=== PATIENT | female | born 1975 | race Caucasian/White ===

== ENCOUNTER → 2021-02-24 | Outpatient (CLI) | payer OTHER | LOC: COL.VAS 02-04 14:00 | DX: R06.02 Shortness of breath (principal); R06.00 Dyspnea, unspecified ==

== ENCOUNTER 2023-08-30 12:48 | Day surgery (SDC) | payer OTHER ==
[~2023-08-30] VITALS: Ht 165.1 cm; Wt 128.7 kg
[2023-08-30 13:35] VITALS: BP 132/79; PULSE 76; TEMP 97.4
[2023-08-30] MEDS ORDERED: TOPAMAX50 MG PO (13:41)
[2023-08-30] MEDS ORDERED: PRILOSEC 20MG20 MG PO (13:42)
[2023-08-30] MEDS ORDERED: IMITREX50 MG PO (13:42)
[2023-08-30] MEDS ORDERED: CYMBALTA 30MG30 MG PO (13:42)
[2023-08-30] MEDS ORDERED: ZYRTEC 10MG10 MG PO (13:43)
[2023-08-30 13:50] VITALS: BP 141/84; PULSE 75
[2023-08-30 13:58] VITALS: BP 150/91; PULSE 77; TEMP 97.3
[2023-08-30 14:05] VITALS: BP 150/91; PULSE 76
--- NOTE | 2023-08-30 15:05 | NUR ---
1335-PATIENT ARRIVED TO [facility] VIA CART, AMBULATED WITH ASSISTANCE TO RECLINER. WARM BLANKET PROVIDED AND VITAL SIGNS TAKEN, VSS. REPORT OBTAINED FROM GLORIA AVALOS. UPDATE GIVEN TO PATIENT AND SPOUSE AT BEDSIDE. PT DENIES PAIN OR NAUSEA AT THIS TIME. 1350-PT TOLERATING PO INTAKE AT THIS TIME, DENIES COMPLAINTS. VSS. 1415-DR. DE LA ROSA AT BEDSIDE, PROCEDURE AND PLAN OF CARE REVIEWED WITH PATIENT. DISCHARGE INSTRUCTIONS REVIEWED, QUESTIONS INVITED. 1430-IV CATHETER DISCONTINUED, TIP INTACT. PRESSURE HELD AND BANDAGE APPLIED. PATIENT DRESSED INDEPENDENTLY. 1440-PATIENT DISCHARGED HOME TO [facility] VIA WHEELCHAIR, ACCOMPANIED BY SPOUSE. ALL BELONGINGS AND DC PAPERWORK SENT WITH PT.
== END 2023-08-30 14:40 | disposition home or self-care (01) ==
LOC: SDCO 12:48
DX: K21.00 Gastro-esophageal reflux disease with esophagitis, without bleeding (principal); K31.89 Other diseases of stomach and duodenum; K44.9 Diaphragmatic hernia without obstruction or gangrene; K92.1 Melena; K57.30 Diverticulosis of large intestine without perforation or abscess without bleeding; K64.0 First degree hemorrhoids; R10.9 Unspecified abdominal pain; R10.30 Lower abdominal pain, unspecified; D64.9 Anemia, unspecified; R53.83 Other fatigue; N80.9 Endometriosis, unspecified; Z98.84 Bariatric surgery status; Z87.891 Personal history of nicotine dependence; Z86.711 Personal history of pulmonary embolism; Z79.01 Long term (current) use of anticoagulants
CPT/HCPCS: J2704; J7120

== ENCOUNTER 2023-09-06 09:53 | Day surgery (SDC) | payer OTHER ==
[~2023-09-06] VITALS: Ht 165.1 cm; Wt 130.1 kg
[~2023-09-06 09:53] MED LIST: CYMBALTA 30MG30 MG PO; IMITREX50 MG PO; PRILOSEC 20MG20 MG PO; TOPAMAX50 MG PO; ZYRTEC 10MG10 MG PO
[2023-09-06 12:49] VITALS: BP 133/75; PULSE 72; TEMP 97.3
[2023-09-06] MEDS ORDERED: NORCO 325 MG-51 TAB PO (14:52)
[2023-09-06 15:35] VITALS: BP 142/77; PULSE 80; TEMP 98.1
[2023-09-06 15:45] VITALS: TEMP 98.1
[2023-09-06 15:50] VITALS: BP 135/66; PULSE 79
[2023-09-06 16:05] VITALS: BP 129/71; PULSE 74
[2023-09-06 16:20] VITALS: BP 118/54; PULSE 77
--- NOTE | 2023-09-06 18:12 | NUR ---
[id number]: PT TO [facility] FROM PACU S/P WIDE LOCAL EXCISION ON BACK, SLN BX OF R AXILLA A&O, PLACED ON MONITOR, VSS ON RA RECEIVED REPORT AND ASSUMED CARE OF PT FROM GLORIA ADAIR SPOUSE BROUGHT TO BEDSIDE GLUE X 2 INCISIONS (UPPER BACK, R AXILLA) COVERED WITH GLUE - CDI ICE PACK TO R AXILLA PROVIDED FOOD/FLUIDS, TOLERATING WELL PT HAS REMAINED A&O, NAD, VSS ON RA, TOLERATING PO, IS WITHOUT SIGNIFICANT COMPLAINT, WITH STEADY GAIT THRU OUT STAY IV D/C'D. D/C INSTRUCTIONS, FOLLOW UP REVIEWED AND HANDED TO PT. ALL QUESTIONS AND CONCERNS ADDRESSED TO PT SATISFACTION. AMBULATES TO BR TO VOID AND BACK - STEADY AND TOLERATED WELL TAKEN TO EXIT VIA W/C WITH ALL BELONGINGS AND PAPERWORK IN HAND, ASSISTED INTO PASSENGER SEAT OF POV. SPOUSE TO DRIVE HOME.
== END 2023-09-06 17:00 ==
LOC: SDCO 09:53
DX: C43.59 Malignant melanoma of other part of trunk (principal); E66.01 Morbid (severe) obesity due to excess calories; Z87.891 Personal history of nicotine dependence; Z68.42 Body mass index [BMI] 45.0-49.9, adult
CPT/HCPCS: J0665; J0690; J1100; J1170; J2405; J2704; J3010; J7120